=== PATIENT | male | born 1965 | race Caucasian/White ===

== ENCOUNTER 2019-10-05 07:50 | Day surgery (SDC) | payer BC ==
--- NOTE | 2019-10-04 14:08 | NUR ---
Left message for pt in regards to procedure intructions and encouraged pt to return phone call and review medical history questions.
[~2019-10-05] VITALS: Ht 188.1 cm; Wt 81.8 kg
[2019-10-05] MEDS ORDERED: TOPROL XL 25MG25 MG PO (08:19)
[2019-10-05] MEDS ORDERED: ELIQUIS 5MG PO (08:19)
[2019-10-05] MEDS ORDERED: OMEGA-3 FISH1000 MG PO (08:20)
[2019-10-05] MEDS ORDERED: XALATAN EYE DROPS OU (08:20)
[2019-10-05] MEDS ORDERED: B-121000 MCG PO (08:21)
[2019-10-05] MEDS ORDERED: PHARMASSURE ZIN50 MG PO (08:21)
[2019-10-05] MEDS ORDERED: MASON NATURAL2000 IU PO (08:22)
[2019-10-05] MEDS ORDERED: MAGNESIUM250 M1 PO (08:22)
[2019-10-05 08:23] VITALS: BP 126/90; PULSE 52; TEMP 98.8
--- NOTE | 2019-10-05 08:25 | NUR ---
Dr. Aguilera in room with pt. Dr. Aguilera informed pt CV is cancelled, pt is in SR.
[2019-10-05] MEDS ORDERED: MULTAQ400 MG PO (08:32)
--- NOTE | 2019-10-05 09:14 | NUR ---
Pt discharged per ambulation with .
== END 2019-10-05 09:15 | disposition home or self-care (01) ==
LOC: COL.CAR 07:50
DX: I48.91 Unspecified atrial fibrillation (principal); I10 Essential (primary) hypertension; Z79.01 Long term (current) use of anticoagulants; Z87.891 Personal history of nicotine dependence; Z80.9 Family history of malignant neoplasm, unspecified; Z82.49 Family history of ischemic heart disease and other diseases of the circulatory system; Z53.8 Procedure and treatment not carried out for other reasons